=== PATIENT | male | born 1975 | race Caucasian/White ===

== ENCOUNTER → 2017-03-29 | Outpatient (CLI) | payer BC ==
[~2017-03-29] MED LIST: CPR500 PO
== END | disposition home or self-care (01) ==
LOC: C.LAB1850 12:33
PROVIDERS: ATTEND Specialist
DX: Z11.59 Encounter for screening for other viral diseases (principal)

== ENCOUNTER → 2018-07-11 | Outpatient (CLI) | payer BC ==
--- NOTE | 2018-07-11 14:23 | DIAGNOSTIC IMAGING REPORT ---
LEFT SHOULDER 3 VIEWS HISTORY: LEFT SHOULDER PAIN COMPARISON: None. FINDINGS: There is no fracture or dislocation. Soft tissues are unremarkable. The left clavicle is intact. The AC joint is well aligned. IMPRESSION: Unremarkable left shoulder. Electronically signed by: Angel Cee M.D. 07/11/2018 2:22 PM Dictated Date/Time: 07/11/2018 2:21 PM
== END | disposition home or self-care (01) ==
LOC: C.RDSM 13:28
PROVIDERS: ATTEND Family Medicine
DX: M25.512 Pain in left shoulder (principal)